=== PATIENT | male | born 1990 | race Asian ===

== ENCOUNTER 2023-01-05 02:59 | Emergency (ER) | payer OTHER ==
[~2023-01-05] VITALS: Ht 170.2 cm; Wt 70.3 kg
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
--- NOTE | 2023-01-05 03:51 | NUR ---
20G IV STARTED AT [facility]. SALINE LOCKED.
[2023-01-05] MEDS ORDERED: HYDROCODONE/APAP 5/325MG TABLET ONE (04:26)
[2023-01-05] MEDS ORDERED: HYDROCODONE/APAP 5/325MG TABLET PO ONE (04:30)
--- NOTE | 2023-01-05 04:58 | NUR ---
BROUGHT TO CT DEPT
[2023-01-05] MEDS ORDERED: IBUP-1953 PO (06:24)
[2023-01-05 06:51] VITALS: BP 121/81
--- NOTE | 2023-01-05 06:51 | NUR ---
Patient discharged to home in stable condition. Written and verbal after care instructions given. Patient verbalizes understanding of instruction.
== END 2023-01-05 06:52 | disposition home or self-care (01) ==
LOC: ER 03:04
DX: S09.90XA Unspecified injury of head, initial encounter (principal); M54.2 Cervicalgia; M54.6 Pain in thoracic spine; V49.49XA Driver injured in collision with other motor vehicles in traffic accident, initial encounter; Y93.89 Activity, other specified; Y92.89 Other specified places as the place of occurrence of the external cause; Y99.8 Other external cause status
CPT/HCPCS: 70450-TC; 71045-TC; 72125-TC; 72129-TC; 72131-TC

== ENCOUNTER 2023-02-21 23:59 | Emergency (ER) | payer SELFPAY ==
[~2023-02-21] VITALS: Ht 165.1 cm; Wt 66.2 kg
[~2023-02-21 23:59] MED LIST: IBUP-1953 PO
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
--- NOTE | 2023-02-22 00:19 | NUR ---
DR LAW POWERS AT PT'S BEDSIDE FOR EVAL
[2023-02-22] MEDS ORDERED: TDAP [DIPH/PERTUSSIS/TET] 0.5 ML VIAL IM ONE ×2 (00:27→00:30)
--- NOTE | 2023-02-22 00:32 | NUR ---
DERMABOND APPLIED TO PT'S R EAR
--- NOTE | 2023-02-22 00:42 | NUR ---
PT TAKEN TO CT VIA DIEGO
--- NOTE | 2023-02-22 01:02 | NUR ---
PT RETURNED TO ER BED [address]
--- NOTE | 2023-02-22 01:32 | NUR ---
Patient discharged to home in stable condition. Written and verbal after care instructions given. Patient verbalizes understanding of instruction. Pt ambulatory with a steady gait
--- NOTE | 2023-02-22 01:32 | NUR ---
Patient discharged to home in stable condition. Written and verbal after care instructions given. Patient verbalizes understanding of instruction. pt ambulatory with a steady gait
[2023-02-22 01:33] VITALS: BP 148/91
== END 2023-02-22 01:33 | disposition home or self-care (01) ==
LOC: ER 02-22 00:01
DX: S01.311A Laceration without foreign body of right ear, initial encounter (principal); W20.8XXA Other cause of strike by thrown, projected or falling object, initial encounter; Y93.89 Activity, other specified; Y92.89 Other specified places as the place of occurrence of the external cause; Y99.8 Other external cause status
CPT/HCPCS: 70450-TC; 72125-TC; 90715